=== PATIENT | male | born 1955 | race Caucasian/White ===

== ENCOUNTER 2018-11-02 18:52 | Emergency (ER) | payer SELFPAY ==
[2018-11-02] MEDS ORDERED: NORMAL SALINE 1000 ML 1,000 ML IV ONE (18:57)
--- NOTE | 2018-11-02 19:00 | ER Document Report ---
ED General - General Stated Complaint: POSSIBLE STROKE Time Seen by Provider: 11/02/18 18:57 Notes: Patient is a 63-year-old male with a past medical history of alcohol abuse, denies any other chronic medical problems who presents by EMS as a code stroke. Initial history is somewhat limited as patient is quite lethargic and struggles to answer quite for questions regarding what happened today. Per EMS the patient was called out as having left-sided weakness and difficulty speaking. They do note that he had incontinence of bowel and bladder today. They state w hen they initially got the patient that he was somewhat confused, having difficulty speaking, and had noted weakness of his left upper and lower extremity as well as left facial droop. They note that this has resolved in route to the hospital and that the patient's mental status appears to be impro ving. They also note that the patient's blood pressure did down trend somewhat during their time with him and was in the 90 systolic at time of arrival. Patient denies any history of similar symptoms in the past. States he had one beer today. Denies drug ingestion. History is otherwise limited secondary to the patient's mild level of confusion and lethargy at time of presentation. - Related Data Allergies/Adverse Reactions: No Known Allergies Allergy (Unverified 11/02/18 19:53) Past Medical History - General Information source: Patient, Emergency Med Personnel - Social History Smoking Status: Current Every Day Smoker Frequency of alcohol use: Heavy Drug Abuse: None Lives with: Alone Family History: Reviewed & Not Pertinent Review of Systems - Review of Systems Notes: Constitutional: Negative for fever. HENT: Negative for sore throat. Eyes: Negative for visual changes. Cardiovascular: Negative for chest pain. Respiratory: Negative for shortness of breath. Gastrointestinal: Negative for abdominal pain, vomiting or diarrhea. Genitourinary: Negative for dysuria. Musculoskeletal: Negative for back pain. Skin: Negative for rash. Neurological: Positive for left-sided weakness, difficulty speaking both resolved 10 point ROS negative except as marked above and in HPI. Physical Exam - Vital signs Vitals: Pulse BP 92 82/53 L 11/02/18 18:57 11/02/18 18:57 Interpretation: Hypotensive Notes: PHYSICAL EXAMINATION: GENERAL: Appears somewhat unwell but in no overt distress. HEAD: Atraumatic, normocephalic. EYES: Pupils equal round and reactive to light, extraocular movements intact, sclera anicteric, conjunctiva are normal. ENT: nares patent, oropharynx clear without exudates. Mild dry mucous membranes. NECK: Normal range of motion, supple without lymphadenopathy LUNGS: Breath sounds clear to auscultation bilaterally and equal. No wheezes rales or rhonchi. HEART: Regular tachycardia without murmurs ABDOMEN: Soft, nontender, normoactive bowel sounds. No guarding, no rebound. No masses appreciated. EXTREMITIES: Normal range of motion, no pitting or edema. No cyanosis. NEUROLOGICAL: Face symmetric. Tongue protrudes midline. Extraocular motions intact. Pupils are 2 mm and equally reactive. Slightly delayed speech although no aphasia or dysarthria. Gait deferred. 5 out of 5 strength in both the dist al and proximal upper and lower extremities bilaterally. Sensation is grossly intact throughout. Finger to nose testing normal. Pronator drift normal. PSYCH: Lethargic, somewhat slow to respond to questions. SKIN: Somewhat pale, diaphoretic Course - Re-evaluation Re-evalutation: 11/02/18 18:59 Patient was immediately assessed upon arrival. Called as a code stroke. At the time of my initial assessment the patient has no focal neurologic deficits, somewhat lethargic but oriented x3. EMS does report that initially had some left-sided weakness as well as a left-sided facial droop. The patient is pale, diaphoretic and appears that he is likely hypotensive at time of presentation. I immediately asked that he placed on electronic device monitor and the nurse has just reported to me that the patient's blood pressures in the 80s systolic. 2 points of IV access will be established. IV fluid resuscitation will be initiated. Natan guillen has been drinking today, admits to chronic alcohol abuse. Patient will go for a stat CT of the head when his blood pressure has improved and undergo standard laboratory assessment. Currently denies any chest pain or shortness of breath. Given the patient's initial neuro deficits which have now resolved as well as his hypotension he is in guarded condition will require frequent reassessments. 11/02/18 19:50 Patient's blood pressure in appearance much improved with ongoing fluid resuscitation. Blood pressures in the 120 systolic. Heart rates have decreased down to 80. Will continue to reassess. 11/02/18 21:20 CT of the head is still not been read by radiology and I have contacted and asked him to please read the CT scan. I have personally reviewed the CT image which does show a possible mass in the right parietal lobe with associated vasogenic edema. Venous blood gas without acidemia. Urinalysis is pending. Patient's blood pressure much improved. Repeat neurologic exam remains reassuring without any acute findings. 11/02/18 22:07 CT report is finally been completed, radiologist agrees that this appears to be a mass, no underlying acute stroke. Intracranial bleed. Probable metastatic disease per their report. CT the chest abdomen pelvis will be obtained to evaluate for source of metastatic disease. Patient will require transfer given vasogenic edema in the brain. We do not have neurosurgical support and would not be inducing chemotherapy or radiation at this facility. IV dexamethasone 10 mg has been administered. Patient has been loaded with Keppra 1500 mg. 11/02/18 22:59 I reassessed the patient again, he is providing much more cogent history at this time. At this point I am quite confident that would actually happen today is that the patient had a partial seizure from the mass in his brain as he states that his friend stated that he was moving involuntarily and he does recall not being able to control the left side of his body. States that his friend was trying to hold him to prevent him from thrashing around. It appears the patient may have had secondary generalization thereafter because he does state that he blacked out and does not recall all events thereafter. This would also explain the patient having loss of bowel or bladder continence. This would also explain why he was somewhat lethargic upon arrival as he was likely postictal. I have contacted [facility] and requested transfer. We will push CT imaging. 11/02/18 23:23 I spoke with a neurologist at [facility] who has accepted the patient. He has reviewed the patient's neuro imaging. CT of the chest abdomen pelvis pending. Will continue to monitor. 11/03/18 04:40 CT of the chest does reveal probable lung cancer which is the probable source of brain metastasis. I informed the patient of this finding. he has not had any further seizures. Remains neuro intact. Awaiting transport to [facility]. - Vital Signs Vital signs: Temp Pulse Resp BP Pulse Ox 97.9 F 83 17 126/77 H 94 11/02/18 19:48 11/02/18 19:48 04/24/19 21:50 11/02/18 21:50 11/02/18 21:50 - Laboratory Result Diagrams: 11/02/18 18:25 11/02/18 18:25 Laboratory results interpreted by me: 11/02/18 11/02/18 11/02/18 18:25 18:25 18:25 WBC 11.5 H Hct 51.3 H MCV 100 H RDW 15.9 H APTT 21.1 L Carbon Dioxide 9 L* Anion Gap 32 H Creatinine 1.81 H Est GFR ( Amer) 46 L Est GFR (Non-Af Amer) 38 L Calcium 10.4 H ALT 13 L Total Protein 9.0 H Albumin 5.2 H Urine Blood 11/02/18 22:09 WBC Hct MCV RDW APTT Carbon Dioxide Anion Gap Creatinine Est GFR ( Amer) Est GFR (Non-Af Amer) Calcium ALT Total Protein Albumin Urine Blood SMALL H - Diagnostic Test Radiology reviewed: Image reviewed, Reports reviewed Radiology results interpreted by me: 11/02/18 23:23 Chest x-ray: No acute infiltrate or pneumothorax CT head: Mass in the right parietal lobe with associated vasogenic edema. - EKG Interpretation by Me Additional EKG results interpreted by me: 11/02/18 23:24 Sinus rhythm, rate 80. No ST elevations or depressions. QTC 439. Critical Care Note - Critical Care Note Total time excluding time spent on procedures (mins): 40 Comments: Critical care time spent obtaining history from patient or surrogate, discussions with consultants, development of treatment plan with patient or hoang rogate, evaluation of patient's response to treatment, examination of patient, ordering and performing treatments and interventions, ordering and review of laboratory studies, re-evaluation of patient's condition, ordering and review of radiographic studies and review of old charts Discharge - Discharge Clinical Impression: Partial seizure, Generalized seizure, Intracranial mass Hypotension Qualifiers: Hypotension type: unspecified hypotension type Qualified Code(s): I95.9 - Hypotension, unspecified Condition: Fair Disposition: [facility]
[2018-11-02 19:24] LABS: ABSOLUTE BASOPHILS # (AUTO) 0.1 10^3/uL (0.0-0.2); ABSOLUTE EOSINOPHILS # (AUTO) 0.3 10^3/uL (0.0-0.6); ABSOLUTE MONOCYTES (AUTO) 1.2 10^3/uL (0.1-1.4); ABSOLUTE NEUT (AUTO) 5.8 10^3/uL (1.7-8.2); BASOPHILS % (AUTO) 0.8 % (0-2); EOSINOPHILS % (AUTO) 2.5 % (0-6); HEMATOCRIT 51.3 % (37.9-51.0); HEMOGLOBIN 16.7 g/dL (13.5-17.0); LYMPHOCYTES % (AUTO) 35.2 % (13-45); MEAN CORPUSCULAR HEMOGLOBIN 32.4 pg (27.0-33.4); MEAN CORPUSCULAR HGB CONC 32.6 g/dL (32.0-36.0); MEAN CORPUSCULAR VOLUME 100 fl (80-97); MONOCYTES % (AUTO) 10.6 % (3-13); PLATELET COUNT 297 10^3/uL (150-450); RED BLOOD COUNT 5.16 10^6/uL (4.35-5.55); RED CELL DISTRIBUTION WIDTH 15.9 % (11.5-14.0); SEGMENTED NEUTROPHILS % (AUTO) 50.9 % (42-78); TOTAL CELLS COUNTED % (AUTO) 100 %; WHITE BLOOD COUNT 11.5 10^3/uL (4.0-10.5)
[2018-11-02 19:26] LABS: PARTIAL THROMBOPLASTIN TIME 21.1 SEC (23.5-35.8)
[2018-11-02 19:29] LABS: INTERNATIONAL RATION (INR) 1.08; PROTHROMBIN TIME 14.6 SEC (11.4-15.4)
--- NOTE | 2018-11-02 19:46 | RADIOLOGY REPORT (SQ) ---
EXAM DESCRIPTION: CHEST SINGLE VIEW COMPLETED DATE/TIME: 11/02/2018 7:30 pm REASON FOR STUDY: BED 20 STROKE ALERT COMPARISON: None. EXAM PARAMETERS: NUMBER OF VIEWS: One view. TECHNIQUE: Single frontal radiographic view of the chest acquired. RADIATION DOSE: NA LIMITATIONS: None. FINDINGS: LUNGS AND PLEURA: No opacities, masses or pneumothorax. No pleural effusion. MEDIASTINUM AND HILAR STRUCTURES: No masses. Contour normal. HEART AND VASCULAR STRUCTURES: Heart normal in size. Normal vasculature. BONES: No acute findings. HARDWARE: None in the chest. OTHER: No other significant finding. IMPRESSION: NO ACUTE RADIOGRAPHIC FINDING IN THE CHEST. TECHNICAL DOCUMENTATION: JOB ID: [id number] [place]-72 2010 [email or web address]- All Rights Reserved Reading location - IP/workstation name: [employer]
[2018-11-02 19:53] LABS: ALANINE AMINOTRANSFERASE 13 U/L (21-72); ALBUMIN 5.2 g/dL (3.5-5.0); ALKALINE PHOSPHATASE 66 U/L (38-126); ASPARTATE AMINO TRANSFERASE 35 U/L (17-59); BILIRUBIN,DIRECT 0.4 mg/dL (0.0-0.4); BILIRUBIN,TOTAL 0.6 mg/dL (0.2-1.3); BLOOD UREA NITROGEN 15 mg/dL (7-20); CALCIUM 10.4 mg/dL (8.4-10.2); CREATINE KINASE 122 U/L (55-170); GLUCOSE 110 mg/dL (75-110); POTASSIUM 4.8 mmol/L (3.6-5.0)
[2018-11-02 19:57] LABS: CHLORIDE 102 mmol/L (98-107); SODIUM 143.4 mmol/L (137-145)
[2018-11-02 20:00] LABS: ALCOHOL < 10 mg/dL (NONE DETECTED); ANION GAP 32 (5-19)
[2018-11-02 20:01] LABS: CARBON DIOXIDE 9 mmol/L (22-30)
[2018-11-02 20:02] LABS: CREATINE KINASE MB 1.48 ng/mL (<4.55)
[2018-11-02 20:04] LABS: TROPONIN I < 0.012 ng/mL
[2018-11-02] MEDS ORDERED: THIAMINE HCL 100 MG in NORMAL SALINE 50 ML IV ONE (20:12)
[2018-11-02 21:07] LABS: VENOUS BLOOD BASE EXCESS -0.9 mmol/L; VENOUS BLOOD HCO3 24.5 mmol/L (20-32); VENOUS BLOOD PCO2 42.9 mmHg (35-63); VENOUS BLOOD PH 7.37 (7.30-7.42)
--- NOTE | 2018-11-02 21:57 | RADIOLOGY REPORT (SQ) ---
EXAM DESCRIPTION: CT HEAD WITHOUT IV CONTRAST COMPLETED DATE/TME: 11/02/2018 18:57 CLINICAL HISTORY: 63 years, Male, BED 20 STROKE ALERT COMPARISON: None. TECHNIQUE: Noncontrast CT of the head was performed. Coronal and sagittal reformations were created. Images stored on PACS. All CT scanners at this facility use dose modulation, iterative reconstruction, and/or weight based dosing when appropriate to reduce radiation dose to as low as reasonably achievable (ALARA). [facility]: Dose Right [facility]: CareDose [facility]: Dose Right [facility]: Teradose 4D [facility]: [employer] LIMITATIONS: None. FINDINGS: Evaluation of the brain parenchyma reveals an ovoid lesion located within the periphery of the right parietal lobe at the stewart/white interface measuring 2.6 x 1.8 cm in size. This appears centrally hypodense with a slightly hyperdense peripheral rim. Associated vasogenic edema is noted throughout the right parietal and frontal lobes. There is associated mass effect upon the right lateral ventricle and subsequent minimal right to left midline shift measuring 2 mm at the anterior septum pellucidum. Remainder of the brain parenchyma appears normal in attenuation. No acute intracranial hemorrhage is identified. Globes and orbits show no acute abnormality. Mild mucosal thickening is noted about the ethmoidal air cells. Remaining paranasal sinuses and mastoid air cells are clear. No depressed skull fractures. IMPRESSION: Ovoid mass located within the periphery of the right parietal lobe with associated vasogenic edema, mass effect upon the right lateral ventricle, and minimal right to left midline shift, suspicious for malignancy, possibly primary or metastatic disease. Correlate with contrast-enhanced MRI. TECHNICAL DOCUMENTATION: Quality ID # [id number]: Final reports with documentation of one or more dose reduction techniques (e.g., Automated exposure control, adjustment of the mA and/or kV according to patient size, use of iterative reconstruction technique) copyright 2010 [employer]- All Rights Reserved
[2018-11-02] MEDS ORDERED: DEXAMETHASONE SOD PHOS INJ 10 MG/1 ML VIAL IV ONE (22:06)
[2018-11-02] MEDS ORDERED: LEVETIRACETAM 1500 MG/NACL-ISO 1,500 MG/100 ML RTUPB IV ONE (22:09)
[2018-11-02 23:02] LABS: APPEARANCE,URINE SLIGHTLY-CLOUDY; BILIRUBIN,URINE NEGATIVE (NEGATIVE); COLOR,URINE YELLOW; GLUCOSE, URINE NEGATIVE (NEGATIVE); KETONES,URINE NEGATIVE (NEGATIVE); LEUKOCYTE ESTERASE,URINE NEGATIVE (NEGATIVE); NITRITE,URINE NEGATIVE (NEGATIVE); PROTEIN,URINE NEGATIVE (NEGATIVE); URINE SPECIFIC GRAVITY 1.019; UROBILINOGEN,URINE NEGATIVE mg/dL (<2.0)
[2018-11-02] MEDS ORDERED: LEVETIRACETAM 1500 MG/NACL-ISO 1,500 MG/100 ML RTUPB IV SCH (23:30)
[2018-11-02] MEDS ORDERED: LEVETIRACETAM 500 MG/NACL-ISO 500 MG/100 ML RTUPB IV ONE (23:30)
[2018-11-02] MEDS ORDERED: LEVETIRACETAM 1000 MG/NACL-ISO 1,000 MG/100 ML RTUPB IV ONE (23:30)
--- NOTE | 2018-11-03 00:04 | RADIOLOGY REPORT (SQ) ---
EXAM DESCRIPTION: CT ABDOMEN PELVIS WITH IV CONTRAST, CT CHEST WITH IV CONTRAST COMPLETED DATE/TME: 11/02/2018 22:07 CLINICAL HISTORY: 63 years Male, eval source of metastatic disease. CREAT 1.81 Comparison: None. Technique: IV contrast. Coronal and sagittal reformat. This exam was performed according to our departmental dose-optimization program, which includes automated exposure control, adjustment of the mA and/or kV according to patient size and/or use of iterative reconstruction technique. [facility]: Dose Right [facility]: CareDose [facility]: Dose Right [facility]: Teradose 4D [facility]: [employer] LIMITATIONS: None Findings: 1.9 x 1.7 x 1.5 cm well-defined ovoid solid mass of the lingula. 0.7 x 0.8 x 0.6 cm subsolid pulmonary nodule of the left lower lobe. Atelectasis/scar. Paraseptal emphysema. Bilateral nephrolithiasis and/or contrast artifact measures up to 0.5 cm each. Surgical clips of the right lower abdominal quadrant. 4.8 cm prostate. Small L5-S1 disc bulge. Likely benign renal cyst(s), not definitively characterized. Atherosclerotic vascular disease. Inferior neck, axillae, mediastinum, airway, heart, liver, gallbladder, pancreas, spleen, adrenals, renal system, gastrointestinal tract, pelvic organs, lymphatics, vasculature, and musculoskeleton appear otherwise unremarkable. Impression: Left pulmonary lesions measure 1.9 cm and 0.8 cm consistent with this patient's clinically suspected metastatic disease. Consider further evaluation/surveillance with contrast CT chest in three months, PET/CT, or tissue sampling.
--- NOTE | 2018-11-03 08:51 | EKG REPORT ---
SEVERITY:- ABNORMAL ECG - SINUS RHYTHM LATERAL INFARCT, OLD : Confirmed by: Burt Becerra MD 03-Nov-2018 08:50:53
[2018-11-03] MEDS: DEXAMETHASONE SOD PHOSPHATE INJ 4 MG/1 ML VIAL IV SCH ×3 (08:55→18:50)
[2018-11-03] MEDS ORDERED: LEVETIRACETAM 1000 MG/NACL-ISO 1,000 MG/100 ML RTUPB IV SCH (10:00)
--- NOTE | 2018-11-03 10:02 | ER Document Report ---
Doctor's Note Notes: 11/03/18 10:00 Rounds: Chart reviewed and patient interviewed. Patient is without complaints. He is eating breakfast. 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 Presented as a seizure yesterday. Lab studies were all essentially normal except for slightly elevated hemoglobin of 16.7 and a white cell count of 11,500. vital signs are all essentially normal. Patient has been given Decadron and Keppra. Awaiting bed assignment at [facility] to transfer the patient. Patient appears to be medically stable for transfer or discharge. Hector Duvall MD
[2018-11-03] MEDS: LEVETIRACETAM 1500 MG/NACL-ISO 1,500 MG/100 ML RTUPB IV SCH ×2 (10:39→22:23)
[2018-11-03] MEDS ORDERED: LEVETIRACETAM 500 MG TABLET PO ONE (18:44)
[2018-11-03] MEDS ORDERED: DEXAMETHASONE SOD PHOS INJ 10 MG/1 ML VIAL IV ONE (18:45)
[2018-11-04] MEDS: DEXAMETHASONE SOD PHOSPHATE INJ 4 MG/1 ML VIAL IV SCH (00:57)
[2018-11-04 02:32] VITALS: BP 95/61
== END 2018-11-04 02:33 | disposition short-term general hospital (02) ==
LOC: ER 18:52
DX: R22.0 Localized swelling, mass and lump, head (principal); R56.9 Unspecified convulsions; C79.31 Secondary malignant neoplasm of brain; I95.9 Hypotension, unspecified; R53.1 Weakness; R53.83 Other fatigue; C34.90 Malignant neoplasm of unspecified part of unspecified bronchus or lung; F10.10 Alcohol abuse, uncomplicated; F17.200 Nicotine dependence, unspecified, uncomplicated
CPT/HCPCS: 93005; 96376; 99291; 96365; 96367; 36415; 82553; 80307; 82550; 85025; 85610; 85730; 80053; 81001; 84484; 82803; 71045; 70450; 71260; 74177; 93010; J1100 ×2; J3411; J7030; J1953 ×2

== ENCOUNTER 2019-03-10 00:42 | Emergency (ER) | payer OTHER, MEDICAID ==
[2019-03-10] MEDS ORDERED: LORAZEPAM INJ 2 MG/1 ML VIAL IV ONE (01:25)
[2019-03-10] MEDS ORDERED: LEVETIRACETAM 1000 MG/NACL-ISO 1,000 MG/100 ML RTUPB IV ONE (01:43)
[2019-03-10] MEDS ORDERED: ACETAMINOPHEN 325 MG TABLET PO ONE (01:45)
--- NOTE | 2019-03-10 01:55 | ER Document Report ---
ED General - General Chief Complaint: Probable Seizure Stated Complaint: POSSIBLE SEIZURES Time Seen by Provider: 03/10/19 01:25 Mode of Arrival: Medic Information source: Patient, Relative TRAVEL OUTSIDE OF THE [place] IN LAST 30 DAYS: No - HPI Notes: Patient is a 63-year-old white male smoker history of basal cell cancer with metastases to the left lung and to the brain who is currently on chemotherapy and has finished radiation therapy comes in with recurrent seizures. The patient had first seizure with his diagnosis of the cancer 4 months ago and has had seizures since that time. He was incontinent of his bowels once, but the other seizures were simple partial seizures. No urinary incontinence. No tongue biting. Patient's last alcohol intake was over 4 months ago. The patient has been following up in [place] for his cancer diagnosis and treatments. His last CT scan of the head was on 01/30/2019 by his report. Blood sugar was 95 in route by EMS. The patient was supposed to see a neurologist yesterday in [place], but was unable to see the neurologist related to not having transportation. Patient lives with his mother who is in her 80s and does not drive. No nausea, vomiting, neck stiffness, constipation, diarrhea, dysuria. The patient reports a mild headache which is unchanged. He reports a mild smoker's cough which is unchanged. No chest pain or difficulty breathing. Medications Prantal, Keppra, Vismodegib, dexamethasone taper and vitamin E. - Related Data Allergies/Adverse Reactions: No Known Allergies Allergy (Unverified 11/02/18 19:53) Past Medical History - General Information source: Patient - Social History Smoking Status: Current Every Day Smoker Chew tobacco use (# tins/day): No Frequency of alcohol use: None Drug Abuse: None Lives with: Family Family History: Reviewed & Not Pertinent Patient has suicidal ideation: No Patient has homicidal ideation: No Renal/ Medical History: Denies: Hx Peritoneal Dialysis Review of Systems - Review of Systems -: Yes All other systems reviewed and negative Physical Exam - Vital signs Vitals: Pulse Resp BP 85 24 H 128/92 H 03/10/19 00:44 03/10/19 00:44 03/10/19 00:44 - Notes Notes: PHYSICAL EXAMINATION: GENERAL: no acute distress. Mildly diaphoretic after simple partial seizure. No current seizure activity. HEAD: Atraumatic, normocephalic, although patient does have area of basal cell cancer with scarring and residual scab tissue right lateral lower jaw measures 2 x 3 cm. No evidence for infection there. EYES: Pupils equal round and reactive to light, extraocular movements intact, sclera anicteric, conjunctiva are normal. ENT: Nares patent, oropharynx clear without exudates. Moist mucous membranes. NECK: Normal range of motion, supple without lymphadenopathy. No meningismus. LUNGS: Breath sounds coarse to auscultation bilaterally and equal. No wheezes rales. Scant rhonchi. HEART: Regular rate and rhythm without murmurs ABDOMEN: Soft, nontender, nondistended abdomen. No guarding, no rebound. No masses appreciated. Musculoskeletal: Normal range of motion, no pitting or edema. No cyanosis. NEUROLOGICAL: Cranial nerves grossly intact. Normal speech. Normal sensory, motor exams. No significant cerebellar ataxia. Patient is alert and oriented x3. PSYCH: Normal mood, normal affect. SKIN: Warm, Dry, normal turgor, no rashes or lesions noted. Course - Re-evaluation Re-evalutation: 03/10/19 01:55 Immediately upon arrival, the patient was given 1 mg of IV Ativan. A Keppra level was ordered, but this is a send out. The patient claims he is compliant with his 750 mg of Keppra twice daily, but patient was given supplemental 1000 mg of IV Keppra given the possibility that he was subtherapeutic. There was a question of a simple partial seizure which occurred after the Ativan and Keppra were given. 03/10/19 05:[address] scan results with the patient and his mother which showed wor sening of the vasogenic edema and increasing size of the mass as compared to previous CT scan that I had available for comparison from 4 months ago. The patient was given 10 mg of IV Decadron. The patient stated that he was supposed to go to an appointment in [place] with either oncology or neurology but was unable to obtain transportation because he does not drive and his elderly mother does not drive. Discussion was undertaken with the patient and his mother and they were in agreement with the patient being transferred for further evaluation and management for recurrent breakthrough seizures and worsening of his basal cell carcinoma metastasis to the brain. Call was made to [facility] for possible transfer. 03/10/19 06:33 Patient was accepted to Dr. Scott at [facility] in transfer. - Vital Signs Vital signs: Temp Pulse Resp BP Pulse Ox 98.4 F 86 20 137/84 H 96 03/10/19 01:03 03/10/19 01:03 03/10/19 06:01 03/10/19 06:01 03/10/19 06:01 - Laboratory Result Diagrams: 03/10/19 01:30 03/10/19 01:30 Laboratory results interpreted by me: 03/10/19 03/10/19 01:30 01:30 WBC 11.8 H MCV 98 H RDW 16.8 H Band Neutrophils % 2 L Monocytes % (Manual) 18 H Abs Monocytes (Manual) 2.1 H BUN 26 H Creatinine 1.30 H Est GFR (MDRD) Non-Af 56 L Critical Care Note - Critical Care Note Total time excluding time spent on procedures (mins): 43 Discharge - Discharge Clinical Impression: Brain metastases, Seizure Basal cell carcinoma Qualifiers: Basal cell carcinoma location: overlapping sites Qualified Code(s): C44.81 - Basal cell carcinoma of overlapping sites of skin Condition: Stable Disposition: [facility]
[2019-03-10 02:02] LABS: HEMATOCRIT 45.1 % (37.9-51.0); HEMOGLOBIN 15.1 g/dL (13.5-17.0); MEAN CORPUSCULAR HEMOGLOBIN 32.7 pg (27.0-33.4); MEAN CORPUSCULAR HGB CONC 33.4 g/dL (32.0-36.0); MEAN CORPUSCULAR VOLUME 98 fl (80-97); PLATELET COUNT 225 10^3/uL (150-450); RED BLOOD COUNT 4.61 10^6/uL (4.35-5.55); RED CELL DISTRIBUTION WIDTH 16.8 % (11.5-14.0); WHITE BLOOD COUNT 11.8 10^3/uL (4.0-10.5)
[2019-03-10 02:08] LABS: ALKALINE PHOSPHATASE 41 U/L (38-126); ANION GAP 6 (5-19); ASPARTATE AMINO TRANSFERASE 42 U/L (17-59); BILIRUBIN,DIRECT 0.3 mg/dL (0.0-0.4); BILIRUBIN,TOTAL 0.5 mg/dL (0.2-1.3); BLOOD UREA NITROGEN 26 mg/dL (7-20); CALCIUM 9.9 mg/dL (8.4-10.2); CARBON DIOXIDE 30 mmol/L (22-30); CHLORIDE 105 mmol/L (98-107); GLUCOSE 83 mg/dL (75-110); POTASSIUM 4.3 mmol/L (3.6-5.0); TOTAL PROTEIN 6.6 g/dL (6.3-8.2)
[2019-03-10 02:23] LABS: ABSOLUTE LYMPHOCYTES# (MANUAL) 3.7 10^3/uL (0.5-4.7); ABSOLUTE MONOCYTES # (MANUAL) 2.1 10^3/uL (0.1-1.4); BAND NEUTROPHILS % (MANUAL) 2 % (3-5); BASOPHILS % (MANUAL) 0 % (0-2); EOSINOPHILS % (MANUAL) 2 % (0-6); LYMPHOCYTES % (MANUAL) 31 % (13-45); MONOCYTES % (MANUAL) 18 % (3-13); SEGMENTED NEUTROPHILS % (MAN) 47 % (42-78); TOTAL CELLS COUNTED 100
[2019-03-10 02:24] LABS: ANISOCYTOSIS 1+; PLATELET COMMENT ADEQUATE
[2019-03-10] MEDS ORDERED: LORAZEPAM INJ 2 MG/1 ML VIAL ONE (02:37)
[2019-03-10 04:25] LABS: APPEARANCE,URINE CLEAR; BILIRUBIN,URINE NEGATIVE (NEGATIVE); COLOR,URINE YELLOW; GLUCOSE, URINE NEGATIVE (NEGATIVE); KETONES,URINE NEGATIVE (NEGATIVE); LEUKOCYTE ESTERASE,URINE NEGATIVE (NEGATIVE); NITRITE,URINE NEGATIVE (NEGATIVE); PROTEIN,URINE NEGATIVE (NEGATIVE); UROBILINOGEN,URINE NEGATIVE mg/dL (<2.0)
--- NOTE | 2019-03-10 04:58 | RADIOLOGY REPORT (SQ) ---
CLINICAL HISTORY: recurrent seizure, hx of basal cell CA brain mets. CREAT: 1.30 COMPARISON: November 02, 2018. TECHNIQUE: CT HEAD WITHOUT THEN WITH IV CONTRAST on 03/10/2019 1:47 AM CDT This exam was performed according to our departmental dose-optimization program, which includes automated exposure control, adjustment of the mA and/or kV according to patient size and/or use of iterative reconstruction technique. FINDINGS: Posterior right frontal, centrally cavitary mass measures 2.9 x 2.1 cm. There is extensive surrounding vasogenic edema. There is mass effect with [id number] midline shift of 3 mm. This is slightly increased in size. Monzon-white differentiation is preserved. There is no hydrocephalus. There is no significant volume loss for age. There are mild patchy hypodensities within the periventricular and subcortical white matter, consistent with microangiopathic ischemic changes. The calvarium is intact. Orbits and globes are unremarkable. The paranasal sinuses are clear. Mastoid air cells are clear. IMPRESSION: Slightly increased size of right frontal mass.
[2019-03-10] MEDS ORDERED: DEXAMETHASONE SOD PHOS INJ 10 MG/1 ML VIAL IV ONE (05:08)
[2019-03-10] MEDS ORDERED: HYDROCODONE/ACETAMINOPHEN 5-325 MG TABLET PO PRN (06:51)
[2019-03-10] MEDS ORDERED: LORAZEPAM INJ 2 MG/1 ML VIAL IV PRN (06:51)
[2019-03-10] MEDS ORDERED: LEVETIRACETAM 500 MG TABLET PO SCH (10:00)
[2019-03-10] MEDS ORDERED: DEXAMETHASONE SOD PHOS INJ 10 MG/1 ML VIAL IV SCH (10:00)
[2019-03-10 13:52] VITALS: BP 108/75
--- NOTE | 2019-03-10 14:33 | ER Document Report ---
Doctor's Note Notes: 03/10/19 14:32 Patient seen and evaluated. He is alert and has not had any recent seizure activity. Patient stable for transfer.
== END 2019-03-10 14:42 | disposition short-term general hospital (02) ==
LOC: ER 00:42
DX: C79.31 Secondary malignant neoplasm of brain (principal); R56.9 Unspecified convulsions; C44.81 Basal cell carcinoma of overlapping sites of skin; F17.200 Nicotine dependence, unspecified, uncomplicated; Z79.899 Other long term (current) drug therapy
CPT/HCPCS: 96376; 99291; 96375; 96365; 36415; 80177; 80307; 83735; 85025; 80053; 81001; 70470; J2060; J1100; J1953

== ENCOUNTER 2019-04-15 02:47 | Emergency (ER) | payer BC, MEDICAID, OTHER ==
[2019-04-15] MEDS ORDERED: NORMAL SALINE 1000 ML 1,000 ML IV ONE ×2 (03:57→06:10)
--- NOTE | 2019-04-15 04:54 | ER Document Report ---
ED General - General Chief Complaint: General Weakness Stated Complaint: WEAKNESS Time Seen by Provider: 04/15/19 03:38 TRAVEL OUTSIDE OF THE [place] IN LAST 30 DAYS: No - HPI Notes: This is a 63-year-old gentleman with a history of lung cancer who presents with a complaint of decreased appetite, generalized weakness, cough and congestion for the past week. Patient states that he had a change in his chemo medication recently and he thinks it may be the reason for this. He has been feeling generally weak for the past week or so. He tells me that he had CT scans of his head, chest abdomen and pelvis done last week and he looked unremarkable. He feels he just needs some fluids. He denies any focal neurologic complaints. He denies any fever or chills. He has a cough that is nonproductive. Denies any vomiting or diarrhea. There are no obvious aggravating or relieving factors. - Related Data Allergies/Adverse Reactions: No Known Allergies Allergy (Unverified 11/02/18 19:53) Past Medical History - Social History Smoking Status: Current Every Day Smoker Frequency of alcohol use: None Drug Abuse: None Family History: Reviewed & Not Pertinent Patient has suicidal ideation: No Patient has homicidal ideation: No Renal/ Medical History: Denies: Hx Peritoneal Dialysis Review of Systems - Review of Systems Constitutional: Weakness. denies: Fever Cardiovascular: denies: Chest pain, Palpitations, Edema Respiratory: Cough Gastrointestinal: denies: Abdomen distended, Abdominal pain Neurological/Psychological: Weakness -: Yes All other systems reviewed and negative Physical Exam - Vital signs Interpretation: Normal - Respiratory Respiratory status: No respiratory distress Chest status: Nontender Breath sounds: Rhonchi - Rhonchi in the left lung base. Chest palpation: Normal - Cardiovascular Rhythm: Regular Heart sounds: Normal auscultation Murmur: No - Abdominal Inspection: Normal Distension: No distension Bowel sounds: Normal Tenderness: Nontender Organomegaly: No organomegaly - Extremities General upper extremity: Normal inspection, Nontender, Normal color, Normal ROM, Normal temperature General lower extremity: Normal inspection, Nontender, Normal color, Normal ROM, Normal temperature, Normal weight bearing. No: Juanita's sign - Neurological Neuro grossly intact: Yes Cognition: Normal Orientation: AAOx4 [place] Coma Scale Eye Opening: Spontaneous [place] Coma Scale Verbal: Oriented [place] Coma Scale Motor: Obeys Commands [place] Coma Scale Total: 15 Speech: Normal Motor strength normal: LUE, RUE, LLE, RLE Sensory: Normal - Psychological Associated symptoms: Normal affect, Normal mood - Skin Skin Temperature: Warm Skin Moisture: Dry Skin Color: Normal Course - Re-evaluation Re-evalutation: 04/15/19 05:01 Differential diagnosis includes dehydration versus elect light abnormality versus failure to thrive versus pneumonia versus bronchitis. Will check basic labs. Will hydrate patient. EKG shows normal sinus rhythm at 61 bpm. Left atrial abnormality. No acute injury pattern. 04/15/19 06:28 Patient is doing well. Labs are still pending. Patient's care discussed with Dr. Tee. Care transferred to Dr. Tee pending labs and reevaluation and disposition. - Laboratory Result Diagrams: 04/15/19 05:47 04/15/19 05:47 Discharge - Discharge Clinical Impression: Weakness, Dehydration Condition: Stable Disposition: OTHER
--- NOTE | 2019-04-15 05:48 | RADIOLOGY REPORT (SQ) ---
EXAM DESCRIPTION: XR CHEST 1 VIEW COMPLETED DATE/TME: 04/15/2019 04:50 CLINICAL HISTORY: 63 years, Male, cough COMPARISON: 11/02/2018 chest NUMBER OF VIEWS: 1 TECHNIQUE: Portable chest LIMITATIONS: None. FINDINGS: The heart size is normal. Osteopenia. Surgical clips project over the left hemithorax. Lungs are clear. No pneumothorax IMPRESSION: No acute cardiopulmonary process copyright 2010 [employer]- All Rights Reserved
[2019-04-15 06:12] LABS: HEMATOCRIT 44.2 % (37.9-51.0); HEMOGLOBIN 15.4 g/dL (13.5-17.0); MEAN CORPUSCULAR HEMOGLOBIN 32.9 pg (27.0-33.4); MEAN CORPUSCULAR HGB CONC 34.8 g/dL (32.0-36.0); MEAN CORPUSCULAR VOLUME 95 fl (80-97); RED BLOOD COUNT 4.68 10^6/uL (4.35-5.55); RED CELL DISTRIBUTION WIDTH 15.3 % (11.5-14.0); WHITE BLOOD COUNT 8.3 10^3/uL (4.0-10.5)
[2019-04-15 06:41] LABS: ABSOLUTE MONOCYTES # (MANUAL) 0.2 10^3/uL (0.1-1.4); BAND NEUTROPHILS % (MANUAL) 6 % (3-5); BASOPHILS % (MANUAL) 0 % (0-2); EOSINOPHILS % (MANUAL) 1 % (0-6); LYMPHOCYTES % (MANUAL) 23 % (13-45); METAMYELOCYTES % (MANUAL) 1 % (0); MONOCYTES % (MANUAL) 3 % (3-13); SEGMENTED NEUTROPHILS % (MAN) 65 % (42-78); TOTAL CELLS COUNTED 100
[2019-04-15 06:47] LABS: ANISOCYTOSIS SLIGHT; PLATELET COMMENT ADEQUATE
[2019-04-15 06:48] LABS: PLATELET COUNT 187 10^3/uL (150-450)
[2019-04-15 08:31] LABS: ALBUMIN 3.1 g/dL (3.5-5.0); ALKALINE PHOSPHATASE 47 U/L (38-126); ANION GAP 10 (5-19); ASPARTATE AMINO TRANSFERASE 25 U/L (17-59); BILIRUBIN,DIRECT 0.3 mg/dL (0.0-0.4); BILIRUBIN,TOTAL 0.6 mg/dL (0.2-1.3); BLOOD UREA NITROGEN 14 mg/dL (7-20); CALCIUM 8.4 mg/dL (8.4-10.2); CARBON DIOXIDE 21 mmol/L (22-30); CHLORIDE 105 mmol/L (98-107); GLUCOSE 78 mg/dL (75-110); POTASSIUM 4.1 mmol/L (3.6-5.0); TOTAL PROTEIN 5.7 g/dL (6.3-8.2)
[2019-04-15] MEDS ORDERED: DEXTROSE 5%-LACTATED RINGERS 1,000 ML IV ONE ×2 (08:45→10:52)
--- NOTE | 2019-04-15 10:55 | ER Document Report ---
Doctor's Note Notes: 04/15/19 10:54 63-year-old male patient with metastatic lesions to his lungs and brain who is currently receiving chemotherapy with a recent change in the medication, and has had prior gamma knife procedure to his brain. He came to the emergency room this morning with weakness and his mother was unable to care for him. He has not been eating or drinking much and he cannot explain why. At this point he has received 3 L in fluid, feels better, but has not urinated yet. He will receive an additional liter of fluid. The social insurance specialist was involved in his care and spoke with the mother, they will set up home health assistance for him, and making arrangements to get him a hospital bed at home. In speaking with the patient and his mother, he sees an oncologist in [facility], but does not have a primary care provider, and does not have anyone coordinating his medical and surgical care. 04/15/19 14:35 The patient did urinate with a urine specific gravity of 1.025, after he had had 4 L of IV fluids since arriving here about 11 hours ago. The social insurance specialist did coordinate for home health care, the nurse did call in a prescription for a hospital bed He is encouraged to follow-up his oncologist and a primary care provider to coordinate his care.
[2019-04-15 13:39] LABS: APPEARANCE,URINE SLIGHTLY-CLOUDY; BILIRUBIN,URINE NEGATIVE (NEGATIVE); COLOR,URINE YELLOW; GLUCOSE, URINE 150 mg/dL (NEGATIVE); KETONES,URINE 20 mg/dL (NEGATIVE); LEUKOCYTE ESTERASE,URINE NEGATIVE (NEGATIVE); NITRITE,URINE NEGATIVE (NEGATIVE); PROTEIN,URINE NEGATIVE (NEGATIVE); URINE SPECIFIC GRAVITY 1.025; UROBILINOGEN,URINE NEGATIVE mg/dL (<2.0)
[2019-04-15 15:27] VITALS: BP 144/71
--- NOTE | 2019-04-15 19:23 | EKG REPORT ---
SEVERITY:- BORDERLINE ECG - SINUS RHYTHM PROBABLE LEFT ATRIAL ABNORMALITY PROBABLE LATERAL INFARCT, OLD MINIMAL ST ELEVATION, INFERIOR LEADS : Confirmed by: Tiffanie Callahan MD 15-Apr-2019 19:22:31
== END 2019-04-15 15:30 | disposition home or self-care (01) ==
LOC: ER 02:47
DX: E86.0 Dehydration (principal); C78.00 Secondary malignant neoplasm of unspecified lung; C79.31 Secondary malignant neoplasm of brain; R53.1 Weakness; R63.0 Anorexia; F17.200 Nicotine dependence, unspecified, uncomplicated; R05 Cough; R94.31 Abnormal electrocardiogram [ECG] [EKG]
CPT/HCPCS: 93005; 36415; 87040; 83735; 85025; 80053; 81001; 71045; 93010; J7121; J7030; 96360; 96361; 99285

== ENCOUNTER 2019-04-16 17:57 | Emergency (ER) | payer BC, MEDICAID, OTHER ==
[2019-04-16 19:07] LABS: INTERNATIONAL RATION (INR) 1.04; PROTHROMBIN TIME 13.7 SEC (11.4-15.4)
[2019-04-16 19:11] LABS: ABSOLUTE BASOPHILS # (AUTO) 0.1 10^3/uL (0.0-0.2); ABSOLUTE EOSINOPHILS # (AUTO) 0.1 10^3/uL (0.0-0.6); ABSOLUTE LYMPHOCYTES (AUTO) 0.9 10^3/uL (0.5-4.7); ABSOLUTE MONOCYTES (AUTO) 0.6 10^3/uL (0.1-1.4); ABSOLUTE NEUT (AUTO) 7.2 10^3/uL (1.7-8.2); BASOPHILS % (AUTO) 0.8 % (0-2); EOSINOPHILS % (AUTO) 0.7 % (0-6); HEMATOCRIT 43.4 % (37.9-51.0); HEMOGLOBIN 15.1 g/dL (13.5-17.0); LYMPHOCYTES % (AUTO) 10.6 % (13-45); MEAN CORPUSCULAR HEMOGLOBIN 32.5 pg (27.0-33.4); MEAN CORPUSCULAR HGB CONC 34.9 g/dL (32.0-36.0); MEAN CORPUSCULAR VOLUME 93 fl (80-97); MONOCYTES % (AUTO) 6.7 % (3-13); PLATELET COUNT 225 10^3/uL (150-450); RED BLOOD COUNT 4.65 10^6/uL (4.35-5.55); SEGMENTED NEUTROPHILS % (AUTO) 81.2 % (42-78); TOTAL CELLS COUNTED % (AUTO) 100 %; WHITE BLOOD COUNT 8.9 10^3/uL (4.0-10.5)
--- NOTE | 2019-04-16 19:12 | ER Document Report ---
ED General - General Chief Complaint: General Weakness Stated Complaint: WEAKNESS Time Seen by Provider: 04/16/19 18:39 TRAVEL OUTSIDE OF THE [place]. IN LAST 30 DAYS: No - HPI Notes: Patient is a 63-year-old male that presents to the emergency department for chief complaint of generalized weakness.Patient presents from home with his mother. He has recent diagnosis of metastatic cancer with nodules in his lungs and brain. Patient was seen in the emergency room last night into this morning for dehydration. Mother states since being discharged back EMS placed the patient back on the couch and he has remained there until bringing him into the emergency room today. She states that he has been unable to get up even to use the restroom. Patient has slept most of the day. He has no new issues today compared to yesterday. She states he has had a little bit of water and tea to drink. Patient denies chest pain, shortness of breath, nausea/vomiting, diarrhea, abdominal pain and urinary complaints. Past Medical History: Reviewed in chart Past Surgical History: Reviewed in chart Social History: Lives at home with mother is caregiver Family History: Reviewed and noncontributory for presenting illness Allergies: Reviewed, see documented allergy list. REVIEW OF SYSTEMS: CONSTITUTIONAL : No fever No chills No diaphoresis Fatigue Malaise EENT: No vision changes No congestion No sore throat CARDIOVASCULAR: No chest pain No palpitations RESPIRATORY: No shortness of breath No cough No difficulty breathing GASTROINTESTINAL: No abdominal pain No nausea No vomiting No diarrhea GENITOURINARY: No dysuria No hematuria No difficulty urinating MUSCULOSKELETAL: No back pain No leg pain No arm pain SKIN: No rashes No lesions LYMPHATIC: No swollen, enlarged glands. NEUROLOGICAL: No lightheadedness No headache No weakness No paresthesias PSYCHIATRIC: No anxiety No depression PHYSICAL EXAMINATION: Vital signs reviewed, nursing noted reviewed. GENERAL: Somnolent, well-nourished and in no acute distress. HEAD: Atraumatic, normocephalic. EYES: Eyes appear normal, extraocular movements intact, sclera anicteric, conjunctiva are normal. ENT: nares patent, oropharynx clear without exudates. Dry mucous membranes. NECK: Normal range of motion, supple without lymphadenopathy LUNGS: Breath sounds clear to auscultation bilaterally and equal. No wheezes rales or rhonchi. HEART: Regular rate and rhythm without murmurs ABDOMEN: Soft, nontender, normoactive bowel sounds. No rebound, guarding, or rigidity. No masses appreciated. EXTREMITIES: Nontender, good range of motion, no pitting or edema. NEUROLOGICAL: Oriented x4, somnolent but wakes to verbal stimuli, no focal neurological deficits. Moves all extremities spontaneously Motor and sensory grossly intact on exam. PSYCH: Flat affect, withdrawn SKIN: Warm, Dry, normal turgor, no rashes or lesions noted on exposed skin - Related Data Allergies/Adverse Reactions: No Known Allergies Allergy (Unverified 11/02/18 19:53) Past Medical History - Social History Smoking Status: Unknown if Ever Smoked Family History: Reviewed & Not Pertinent Patient has suicidal ideation: No Patient has homicidal ideation: No Neurological Medical History: Reports: Hx Seizures Renal/ Medical History: Denies: Hx Peritoneal Dialysis Physical Exam - Vital signs Vitals: Resp 27 H 04/16/19 18:07 Course - Re-evaluation Re-evalutation: 04/16/19 19:22 Vitals reviewed. Nursing notes reviewed. Patient's previous visit was reviewed and showed he received 4 L of fluids prior to urinating yesterday. He has not had much to drink since and has dry mucous membranes. Patient clinically appears dehydrated again. The remainder of his vital signs are stable. He is somnolent but answering questions appropriately and wakes to light verbal stimuli. 04/16/19 20:43 Patient's lab work is unremarkable. He is a mild hyponatremia likely secondary to dehydration. He does feel improved after receiving 1 L of fluids. He has not yet urinated. Patient also has not had anything to eat today and reports having no appetite. He is unable to stand or sit up at this point because of his generalized weakness. His mother does not feel comfortable taking him home since she is unable to get him off the couch to provide any assistance. Patient will remain in the emergency room until morning for a social work consultation and likely discharge to group home facility. Laboratory 04/16/19 04/16/19 04/16/19 18:16 18:16 18:16 WBC 8.9 RBC 4.65 Hgb 15.1 Hct 43.4 MCV 93 MCH 32.5 MCHC 34.9 RDW 15.0 H Plt Count 225 Lymph % (Auto) 10.6 L [place] % (Auto) 6.7 Eos % (Auto) 0.7 Baso % (Auto) 0.8 Absolute Neuts (auto) 7.2 Absolute Lymphs (auto) 0.9 Absolute Monos (auto) 0.6 Absolute Eos (auto) 0.1 Absolute Basos (auto) 0.1 Seg Neutrophils % 81.2 H PT 13.7 INR 1.04 Sodium 135.2 L Potassium 3.9 Chloride 100 Carbon Dioxide 24 Anion Gap 11 BUN 7 Creatinine 0.74 Est GFR ( Amer) > 60 Est GFR (MDRD) Non-Af > 60 Glucose 93 Lactic Acid Calcium 9.1 Total Bilirubin 0.6 Direct Bilirubin 0.3 Neonat Total Bilirubin Not Reportable Neonat Direct Bilirubin Not Reportable Neonat Indirect Bili Not Reportable AST 25 ALT 36 Alkaline Phosphatase 66 Total Protein 6.1 L Albumin 3.4 L 04/16/19 18:16 WBC RBC Hgb Hct MCV MCH MCHC RDW Plt Count Lymph % (Auto) [place] % (Auto) Eos % (Auto) Baso % (Auto) Absolute Neuts (auto) Absolute Lymphs (auto) Absolute Monos (auto) Absolute Eos (auto) Absolute Basos (auto) Seg Neutrophils % PT INR Sodium Potassium Chloride Carbon Dioxide Anion Gap BUN Creatinine Est GFR ( Amer) Est GFR (MDRD) Non-Af Glucose Lactic Acid 1.0 Calcium Total Bilirubin Direct Bilirubin Neonat Total Bilirubin Neonat Direct Bilirubin Neonat Indirect Bili AST ALT Alkaline Phosphatase Total Protein Albumin Chest X-Ray 04/16/19 18:29 IMPRESSION: 1.8 cm nodule at the lingula, probably corresponding to known metastatic disease. Otherwise, no consolidation or pleural effusion. - Vital Signs Vital signs: Temp Pulse Resp BP Pulse Ox 97.9 F 24 H 125/88 H 95 04/16/19 18:22 04/16/19 18:08 04/16/19 18:08 04/16/19 18:08 - Laboratory Result Diagrams: 04/16/19 18:16 04/16/19 18:16 Laboratory results interpreted by me: 04/16/19 04/16/19 18:16 18:16 RDW 15.0 H Lymph % (Auto) 10.6 L Seg Neutrophils % 81.2 H Sodium 135.2 L Total Protein 6.1 L Albumin 3.4 L - EKG Interpretation by Me Additional EKG results interpreted by me: 04/16/19 19:33 Interpreted by myself 1853: Normal sinus rhythm, rate 66, normal axis, no STEMI Discharge - Discharge Clinical Impression: Hyponatremia, Dehydration, Generalized weakness Condition: Stable Disposition: SNF-Other
--- NOTE | 2019-04-16 19:13 | RADIOLOGY REPORT (SQ) ---
EXAM DESCRIPTION: CHEST SINGLE VIEW COMPLETED DATE/TIME: 04/16/2019 6:44 pm REASON FOR STUDY: sepsis alert COMPARISON: Chest x-ray 04/15/2019, 10/13/2018. CT chest 10/13/2018. EXAM PARAMETERS: NUMBER OF VIEWS: One view. TECHNIQUE: Single frontal radiographic view of the chest acquired. RADIATION DOSE: NA LIMITATIONS: None. FINDINGS: LUNGS AND PLEURA: Surgical clips are noted at the left lower hemithorax. There is a 1.8 c m nodule at the lingula. No consolidation, sizeable pleural effusion or pneumothorax. MEDIASTINUM AND HILAR STRUCTURES: No masses. Contour normal. HEART AND VASCULAR STRUCTURES: Heart normal in size. Normal vasculature. BONES: No acute findings. HARDWARE: None in the chest. IMPRESSION: 1.8 cm nodule at the lingula, probably corresponding to known metastatic disease. Other sousa, no consolidation or pleural effusion. TECHNICAL DOCUMENTATION: JOB ID: [id number] 2010 [employer]- All Rights Reserved Reading location - IP/workstation name: [email or web address]
[2019-04-16] MEDS ORDERED: NORMAL SALINE 1000 ML 1,000 ML IV ONE (19:18)
[2019-04-16 19:20] LABS: ALBUMIN 3.4 g/dL (3.5-5.0); ALKALINE PHOSPHATASE 66 U/L (38-126); ANION GAP 11 (5-19); ASPARTATE AMINO TRANSFERASE 25 U/L (17-59); BILIRUBIN,DIRECT 0.3 mg/dL (0.0-0.4); BILIRUBIN,TOTAL 0.6 mg/dL (0.2-1.3); BLOOD UREA NITROGEN 7 mg/dL (7-20); CALCIUM 9.1 mg/dL (8.4-10.2); CARBON DIOXIDE 24 mmol/L (22-30); CHLORIDE 100 mmol/L (98-107); GLUCOSE 93 mg/dL (75-110); POTASSIUM 3.9 mmol/L (3.6-5.0); TOTAL PROTEIN 6.1 g/dL (6.3-8.2)
--- NOTE | 2019-04-16 22:40 | EKG REPORT ---
SEVERITY:- ABNORMAL ECG - SINUS RHYTHM PROBABLE LEFT ATRIAL ABNORMALITY BORDERLINE T ABNORMALITIES, ANT-LAT LEADS BORDERLINE ST ELEVATION, INFERIOR LEADS : Confirmed by: Tiffanie Callahan MD 16-Apr-2019 22:39:41
[2019-04-17] MEDS ORDERED: LEVETIRACETAM 1000 MG/NACL-ISO 1,000 MG/100 ML RTUPB IV ONE (12:28)
[2019-04-17 13:35] LABS: APPEARANCE,URINE CLEAR; BILIRUBIN,URINE NEGATIVE (NEGATIVE); COLOR,URINE YELLOW; GLUCOSE, URINE NEGATIVE (NEGATIVE); KETONES,URINE 20 mg/dL (NEGATIVE); LEUKOCYTE ESTERASE,URINE NEGATIVE (NEGATIVE); NITRITE,URINE NEGATIVE (NEGATIVE); PROTEIN,URINE NEGATIVE (NEGATIVE); URINE SPECIFIC GRAVITY 1.015; UROBILINOGEN,URINE NEGATIVE mg/dL (<2.0)
[2019-04-17 14:13] VITALS: BP 131/80
== END 2019-04-17 14:13 ==
LOC: ER 17:57
DX: E87.1 Hypo-osmolality and hyponatremia (principal); E86.0 Dehydration; R53.1 Weakness; C78.02 Secondary malignant neoplasm of left lung; C78.01 Secondary malignant neoplasm of right lung; C79.31 Secondary malignant neoplasm of brain
CPT/HCPCS: 93005; 99285; 96361; 96374; 36415; 87040; 87086; 82962; 85025; 85610; 80053; 81001; 83605; 71045; 93010; J7030; J1953

== ENCOUNTER 2019-04-21 08:10 | Emergency (ER) | payer BC, MEDICAID, OTHER ==
[2019-04-21] MEDS ORDERED: NORMAL SALINE 1000 ML 1,000 ML IV ONE (09:23)
[2019-04-21] MEDS ORDERED: LEVETIRACETAM 1000 MG/NACL-ISO 1,000 MG/100 ML RTUPB IV ONE (09:23)
--- NOTE | 2019-04-21 09:32 | RADIOLOGY REPORT (SQ) ---
EXAM DESCRIPTION: CHEST SINGLE VIEW COMPLETED DATE/TIME: 04/21/2019 8:58 am REASON FOR STUDY: SOB COMPARISON: 04/16/2019 EXAM PARAMETERS: NUMBER OF VIEWS: One view. TECHNIQUE: Single frontal radiographic view of the chest acquired. RADIATION DOSE: NA LIMITATIONS: None. FINDINGS: LUNGS AND PLEURA: Mild ill-defined left basilar opacities. Previously seen nodule not wel l defined on this exam. Unchanged left apical pleural thickening. Unremarkable right hemithorax. N o pneumothorax. No large effusion. MEDIASTINUM AND HILAR STRUCTURES: Stable. HEART AND VASCULAR STRUCTURES: Normal heart size. Ectatic atherosclerotic thoracic aorta. BONES: No acute findings. HARDWARE: Metallic clips overlie left lung base. OTHER: No other significant finding. IMPRESSION: Ill-defined left basilar opacity possibly atelectasis or infection. Previously-seen lef t lingular nodule not well identified. TECHNICAL DOCUMENTATION: JOB ID: [id number] [employer]- All Rights Reserved Reading location - IP/workstation name: [email or web address]
--- NOTE | 2019-04-21 10:32 | RADIOLOGY REPORT (SQ) ---
EXAM DESCRIPTION: CT HEAD WITHOUT COMPLETED DATE/TIME: 04/21/2019 10:11 am REASON FOR STUDY: New onset weakness, melanoma brain mets COMPARISON: 03/10/2019 TECHNIQUE: Axial images acquired through the brain without intravenous contrast. Images reviewed wi th bone, brain and subdural windows. Additional sagittal and coronal reconstructions were generated. Images stored on PACS. All CT scanners at this facility use dose modulation, iterative reconstruction, and/or weight based d osing when appropriate to reduce radiation dose to as low as reasonably achievable (ALARA). [facility]: Dose Right [facility]: CareDose [facility]: Dose Right [facility]: Teradose 4D [facility]: Smart SpeakUp RADIATION DOSE: CT Rad equipment meets quality standard of care and radiation dose reduction techniq ues were employed. CTDIvol: 53.2 mGy. DLP: 1070 mGy-cm. mGy. LIMITATIONS: None. FINDINGS: VENTRICLES: There is effacement of the right lateral ventricular system and leftward midli ne shift. CEREBRUM: Large area of confluent hypoattenuation involving the subcortical white matter of the right frontoparietal lobe, mildly progressed from prior. Known right posterior frontal mass is mildly inc reased in size measuring up to 3.1 cm (Series 400, image 15), previously 2.9 cm although evaluation l imited without intravenous contrast. There is worsening local sulcal effacement involving the right hemisphere and leftward midline shift measuring 11 mm, previously 4 mm. The basal cistern remains pa tent. No additional evidence of large vascular territory infarct. Parietal lobe, parietal Normal gr ay/white matter differentiation. No areas of low density in the white matter. CEREBELLUM: No masses. No hemorrhage. No alteration of density. No evidence for acute infarction. EXTRAAXIAL SPACES: No fluid collections. No masses. ORBITS AND GLOBE: No intra- or extraconal masses. Normal contour of globe without masses. CALVARIUM: No fracture. PARANASAL SINUSES: Mild ethmoid air cell mucosal thickening. Remaining sinuses are clear. SOFT TISSUES: No mass or hematoma. OTHER: No other significant finding. IMPRESSION: Mildly increased size of the known right posterior frontal mass measuring up to 3.1 cm a lthough evaluation limited without intravenous contrast. Interval worsening of the vasogenic edema a nd local mass effect with right holohemispheric sulcal effacement and 11 mm of leftward midline shift , previously 4 mm. EVIDENCE OF ACUTE STROKE: NO. COMMENT: Quality ID # [id number]: Final reports with documentation of one or more dose reduction techniques (e.g., Automated exposure control, adjustment of the mA and/or kV according to patient size, use of iterative reconstruction technique) TECHNICAL DOCUMENTATION: JOB ID: [id number] [employer]- All Rights Reserved Reading location - IP/workstation name: [email or web address]
[2019-04-21 10:36] LABS: ABSOLUTE BASOPHILS # (AUTO) 0.1 10^3/uL (0.0-0.2); ABSOLUTE EOSINOPHILS # (AUTO) 0.1 10^3/uL (0.0-0.6); ABSOLUTE LYMPHOCYTES (AUTO) 1.4 10^3/uL (0.5-4.7); ABSOLUTE MONOCYTES (AUTO) 0.8 10^3/uL (0.1-1.4); ABSOLUTE NEUT (AUTO) 7.4 10^3/uL (1.7-8.2); BASOPHILS % (AUTO) 0.8 % (0-2); HEMATOCRIT 43.4 % (37.9-51.0); HEMOGLOBIN 15.2 g/dL (13.5-17.0); LYMPHOCYTES % (AUTO) 14.6 % (13-45); MEAN CORPUSCULAR HEMOGLOBIN 32.5 pg (27.0-33.4); MEAN CORPUSCULAR VOLUME 93 fl (80-97); PLATELET COUNT 388 10^3/uL (150-450); RED BLOOD COUNT 4.66 10^6/uL (4.35-5.55); RED CELL DISTRIBUTION WIDTH 14.8 % (11.5-14.0); SEGMENTED NEUTROPHILS % (AUTO) 75.6 % (42-78); TOTAL CELLS COUNTED % (AUTO) 100 %; WHITE BLOOD COUNT 9.8 10^3/uL (4.0-10.5)
[2019-04-21 10:51] LABS: ALBUMIN 3.3 g/dL (3.5-5.0); ALKALINE PHOSPHATASE 66 U/L (38-126); ANION GAP 13 (5-19); ASPARTATE AMINO TRANSFERASE 19 U/L (17-59); BILIRUBIN,DIRECT 0.3 mg/dL (0.0-0.4); BILIRUBIN,TOTAL 0.5 mg/dL (0.2-1.3); BLOOD UREA NITROGEN 14 mg/dL (7-20); CALCIUM 9.4 mg/dL (8.4-10.2); CARBON DIOXIDE 22 mmol/L (22-30); CHLORIDE 103 mmol/L (98-107); CREATINE KINASE 46 U/L (55-170); GLUCOSE 85 mg/dL (75-110); POTASSIUM 4.5 mmol/L (3.6-5.0); TOTAL PROTEIN 6.2 g/dL (6.3-8.2)
[2019-04-21 11:04] LABS: TROPONIN I < 0.012 ng/mL
[2019-04-21] MEDS ORDERED: DEXAMETHASONE SOD PHOS INJ 10 MG/1 ML VIAL IV ONE (11:16)
--- NOTE | 2019-04-21 11:16 | ER Document Report ---
Entered by BELEN ROSADO SCRIBE 04/21/19 0922 Acting as scribe for:RASHAAD STERN MD ED General - General Stated Complaint: SHORTNESS OF BREATH Time Seen by Provider: 04/21/19 09:11 Notes: Patient is 63-year-old male with malignant melanoma with metastatic lesions to his lung and brain. He has been treated with chemo, and gamma knife radiation to the brain lesions. Patient was seen here on 04/15/2019 for extreme weakness and loss of appetite. He reported that the symptoms have been going on for about 1 week. He reported in the week prior to onset of symptoms, he had CT scans of his head chest and abdomen and they were unremarkable. The patient received 4 L of IV fluids before he was able to urinate. At that point he was feeling much better and felt comfortable going home. Arrangements were made for home health and a hospital bed, as his octogenarian mother was the only one at home to try to help care for him. The patient did return the following day on 04/16/2019 for dehydration, he had laid on the sofa at home and not gotten up since he was discharged the day before. He was hydrated, got Keppra, and was discharged home on 04/17/2019. He was unable to make his oncology appointment that day, and has not been able to go to see his oncologist all week due to him being too weak to leave the house. I did discuss his care with Dr. Vaughan, his oncologist in [place]. He tells me that 2 weeks ago the patient was up walking, going out to eat and he is concerned about this dramatic change. He also reports that the patient did not have a CT of his head recently, only chest abdomen pelvis which showed progression of his liver metastases. He was seen in early March at [facility] for seizures. He was started on Decadron and Keppra, but a CT scan of his head was not done. We will do a CT scan of his head to look for possible causes of this acute deterioration. TRAVEL OUTSIDE OF THE [place] IN LAST 30 DAYS: No - Related Data Allergies/Adverse Reactions: No Known Allergies Allergy (Unverified 11/02/18 19:53) Past Medical History - General Information source: Patient, Parent, H Records, Outside Facility Records - Social History Smoking Status: Former Smoker Cigarette use (# per day): No Frequency of alcohol use: None Drug Abuse: None Lives with: Family Family History: Reviewed & Not Pertinent Patient has suicidal ideation: No Patient has homicidal ideation: No Neurological Medical History: Reports: Hx Seizures Past Surgical History: Reports: Hx Bowel Surgery Review of Systems - Review of Systems Constitutional: See HPI, Weakness, Other - dehydrated EENT: No symptoms reported Cardiovascular: No symptoms reported Respiratory: See HPI, Cough, Short of breath Gastrointestinal: No symptoms reported Genitourinary: No symptoms reported Male Genitourinary: No symptoms reported Musculoskeletal: No symptoms reported Skin: No symptoms reported Hematologic/Lymphatic: No symptoms reported Neurological/Psychological: No symptoms reported -: Yes All other systems reviewed and negative Physical Exam - Vital signs Vitals: Resp Pulse Ox 32 H 93 04/21/19 08:19 04/21/19 08:19 - Notes Notes: Physical Exam: General: Alert, cachectic, eyes sunken back. HEENT: Normocephalic. Atraumatic. PERRL. Extraocular movements intact. Oropharynx clear. Very dry mucous membranes, ice on the back of his face. Neck: Supple. Non-tender. Respiratory: No respiratory distress. Clear and equal breath sounds bilaterally. Cardiovascular: Regular rate and rhythm. Abdominal: Normal Inspection. Non-tender. No distension. Normal Bowel Sounds. Back: No gross abnormalities. Extremities: Moves all four extremities. Upper extremities: Normal inspection. Normal ROM. Lower extremities: Normal inspection. No edema. Normal ROM. Neurological: Normal cognition. AAOx4. Normal speech. Psychological: Normal affect. Normal Mood. Skin: Warm. Dry. Normal color. Course - Re-evaluation Re-evalutation: 04/21/19 14:11 Call was placed to the [facility] referral center at 1:20 PM to discuss the patient's CT scan with his neurosurgeon, Dr. Matamoros. Radiology department was to send the CT scan via power share to [facility]. 04/21/19 18:39 I was able to speak with LIBRADO Velasco who called back on behalf of Dr. Matamoros about 4:32 PM today. They did review the patient's CT scan and felt that there was nothing to offer the patient from a neurosurgical standpoint. I then spoke with Dr. Vaughan, the patient's oncologist in [place]. He felt the patient may be best served by being admitted to [facility] to treat his current acute medical problems, and then make decisions about hospice care. - Vital Signs Vital signs: Temp Pulse Resp BP Pulse Ox 98.0 F 24 H 112/80 93 04/21/19 08:21 04/21/19 16:01 04/21/19 16:01 04/21/19 16:01 - Laboratory Result Diagrams: 04/21/19 09:45 04/21/19 09:45 Laboratory results interpreted by me: 04/21/19 04/21/19 09:45 09:45 RDW 14.8 H Creatine Kinase 46 L Total Protein 6.2 L Albumin 3.3 L - Diagnostic Test Radiology reviewed: Image reviewed, Reports reviewed - Chest x-ray shows a new infiltrate in the left lateral lung base that was not present a week ago. CT scan of the head shows mildly increased size of the known right posterior f rontal mass. There is interval worsening of vasogenic edema and local mass- effect with a right holohemispheric sulcal effacement and 11 mm of leftward midline shift. Previously it was 4 mm. - EKG Interpretation by Me EKG shows normal: Sinus rhythm, [place], Intervals, QRS Complexes, ST-T Waves Rate: Tachycardia - 105 P Waves: LAE - Consults Dr. Ruiz Time consulted: 18:20 Consulted provider: other - Will accept at [facility]. Discharge - Discharge Clinical Impression: Vasogenic brain edema, Generalized weakness, Dehydration Pneumonia Qualifiers: Pneumonia type: due to unspecified organism Laterality: left Lung location: lower lobe of lung Qualified Code(s): J18.1 - Lobar pneumonia, unspecified organism Condition: Stable Disposition: [facility] Scribe Attestation: 04/21/19 14:13 I personally performed the services described in the documentation, reviewed and edited the documentation which was dictated to the scribe in my presence, and it accurately records my words and actions. I personally performed the services described in the documentation, reviewed and edited the documentation which was dictated to the scribe in my presence, and it accurately records my words and actions.
[2019-04-21] MEDS ORDERED: LEVOFLOXACIN 750 MG/D5W RTU 750 MG/150 ML RTUPB IV ONE (11:17)
[2019-04-21] MEDS ORDERED: DEXTROSE 5%-LACTATED RINGERS 1,000 ML IV ONE (16:44)
--- NOTE | 2019-04-21 21:19 | EKG REPORT ---
SEVERITY:- BORDERLINE ECG - SINUS TACHYCARDIA PROBABLE LEFT ATRIAL ABNORMALITY NONSPECIFIC LATERAL ST-T CHANGES : Confirmed by: Burt Becerra MD 21-Apr-2019 21:19:00
[2019-04-21 22:02] VITALS: BP 111/79
--- NOTE | 2019-04-21 22:23 | ER Document Report ---
Doctor's Note Notes: 04/21/19 22:20 This is a 63-year-old male with a history of metastatic cancer that is being transferred to [facility] for a higher level of care. Patient was seen and evaluated by this MD just prior to his transfer. Vital signs were reviewed. Patient is alert and oriented x3. Patient is without complaint at this time and appears to be in no acute distress. Transport is present at bedside prepared to take the patient to [facility]
== END 2019-04-21 22:35 | disposition short-term general hospital (02) ==
LOC: ER 08:10
DX: G93.6 Cerebral edema (principal); J18.1 Lobar pneumonia, unspecified organism; E86.0 Dehydration; R53.1 Weakness; R06.02 Shortness of breath; C49.9 Malignant neoplasm of connective and soft tissue, unspecified; C78.00 Secondary malignant neoplasm of unspecified lung; C79.31 Secondary malignant neoplasm of brain
CPT/HCPCS: 93005; 36415; 87040; 82553; 82550; 83735; 85025; 80053; 84484; 71045; 70450; 93010; J7121; J1100; J7030; J1956; J1953; 96361; 96365; 96366; 96367; 96375; 99285